=== PATIENT | female | born 1965 | race Two or more races ===

== ENCOUNTER 2017-05-01 11:42 | Day surgery (SDC) | payer OTHER ==
[~2017-05-01] VITALS: Ht 165.1 cm; Wt 57.3 kg
[2017-05-01 12:23] VITALS: Ht 165.1 cm; Wt 57.3 kg
[2017-05-01 13:30] VITALS: BP 106/69; PULSE 62; RESP 22
[2017-05-01] MEDS ORDERED: MIDAZOLAM 1 MG/ML 2 ML INJ ONE (13:54)
[2017-05-01] MEDS ORDERED: PROPOFOL 40 ML ONE (13:54)
[2017-05-01 14:55] VITALS: BP_SYST 66; PULSE 60; RESP 14
--- NOTE | 2017-05-06 04:46 | GILP ---
DATE OF PROCEDURE: 05/01/2017 PROCEDURE: Colonoscopy. HISTORY AND INDICATIONS: PREMEDICATION: Monitored anesthesia care by anesthesiologist. INSTRUMENT USED: Olympus colonoscope PREPARATION: Adequate. TECHNIQUE: After informed consent, with the patient/relatives understanding the procedure, its indications potential risks and complications, including but not limited to: allergic reaction, bleeding, perforation, infection, missed lesions and after all pertinent questions were answered to the patient's satisfaction, the patient/relatives signed the witnessed informed consent. Following this, premedication was administered slowly IV push by under careful cardiovascular and respiratory monitoring with pulse oximetry, automatic blood pressure and vehicle monitor technician. Once the sedative effect was achieved, the patient was placed in the left lateral decubitus position, digital rectal examination was performed. The colonoscope was then introduced and advanced under visual control throughout all segments of the colon including: the rectum, sigmoid, descending colon, splenic flexure, transverse colon, hepatic flexure, ascending colon and finally reaching the cecum which was clearly identified by transillumination, finger indentation and the ileocecal valve. Careful examination of the mucosa of the lower gastrointestinal tract both on insertion as well as withdrawal of the instrument disclosed the following findings: RECTAL EXAMINATION: (Normal) No evidence of perirectal disease, no masses. COLONIC MUCOSA: (Normal) The colonic mucosa is entirely unremarkable throughout. The ileocecal valve was clearly identified and appears unremarkable. The instrument was then withdrawn, re-examining the mucosa in detail. No additional abnormalities were revealed with the exception of moderate size internal hemorrhoids. IMPRESSION: 1. Normal colonic mucosa to cecum. 2. Moderate size internal hemorrhoids. RECOMMENDATIONS: The patient will be followed up as an outpatient. Annual Hemoccult stool testing is recommended. Screening colonoscopy in 10 years was recommended. Dictated By: Shoshana Crews MD /jf/sarah /Document#: [id number]
== END 2017-05-01 19:38 | disposition home or self-care (01) ==
LOC: GIL 11:42
PROVIDERS: ATTEND Internal Medicine Gastroenterology
DX: Z12.11 Encounter for screening for malignant neoplasm of colon (principal); K64.8 Other hemorrhoids
CPT/HCPCS: 45378; J2250; Z7610